=== PATIENT | female | born 1970 | race Caucasian/White ===

== ENCOUNTER 2021-11-23 08:38 | Outpatient (CLI) | payer OTHER | END 2021-11-23 08:39 | disposition home or self-care (01) | LOC: CSHMRI 08:38 | PROVIDERS: ATTEND Orthopaedic Surgery | DX: M67.922 Unspecified disorder of synovium and tendon, left upper arm (principal); S46.012A Strain of muscle(s) and tendon(s) of the rotator cuff of left shoulder, initial encounter ==